=== PATIENT | male | born 1945 | race Caucasian/White ===

== ENCOUNTER 2018-10-25 17:30 | Inpatient (IN) ==
--- OUTSIDE RECORDS SUMMARY | 2018-10-25 17:33 | External Medical Summary | Continuity of Care Document ---
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) (Z86.008) History of basal cell carcinoma (V10.83) (Z85.828) Actinic keratosis (702.0) (L57.0) Neoplasm of uncertain behavior of skin (238.2) (D48.5) Dermatitis (692.9) (L30.9) Dermatophytosis, body (110.5) (B35.4) 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 Matt Knox Start: 21-Aug-2014 Quantity: 100 Refills: 2 Lindsey CAPS Matt Refills: 0 Flonase SUSP Matt Refills: 0 Zocor TABS Matt Refills: 0 Triamcinolone Acetonide 0.1 % External O intment; APPLY SPARINGLY TO AFFECTED AREA(S) TWICE DAILY Matt Knox Start: 29-May-2014 Quantity: 1 80 GM Tube Refills: 2 Econazole Nitrate 1 % External Cream; AP PLY SPARINGLY TO THE AFFECTED AREA(S) TWICE DAILY. Matt Knox Start: 07-Feb-2014 Quantity: 1 30 GM Tube Refills: 3 Compound Medication; HYDROCORTISONE 1% C REAM : CLOTRIMAZOLE 1 % CREAM 1:1 MIXTURE: APPLY TO AFFECTED AREAS TWICE DAILY SHANTHI Reyes Start: 29-Jan-2015 Quantity: 1 Refills: 1 Fluorouracil 5 % External Cream; APPLY A THIN LAYER TO AFFECTED AREA(S) TWICE DAILY. Matt Knox Start: 21-Jun-2015 Quantity: 30 Refills: 1 Mometasone Furoate 0.1 % External Ointme nt; APPLY SPARINGLY TO AFFECTED AREA(S) ONCE DAILY Matt Knox Start: 02-Jul-2015 Quantity: 1 15 GM Tube Refills: 3 Doxycycline Hyclate 100 MG Oral Capsule; TAKE 1 CAPSULE ANUPAM BAR M.D. Start: 20-Jan-2014 Refills: 0 Procedures History of Renal Lithotripsy Status: Com pleted Immunizations Influenza On: Jan-2012 Family History Father Family history of Diabetes Mellitus (V18.0) Status: Active Unknown Family Member Family history of Coronary Artery Disease Status: Active Comments: Family History (V17.49) Social History - Smoking Status Never smoker Plan of Treatment Planned Observations Planned Goals not documented Results No Known Results Results not documented Encounters Appointment; Gildardo Knox M.D. 07-Apr-2017 16:00 Encounter Diagnosis: Problem not documented
[2018-10-25] MEDS ORDERED: SODIUM CHLORIDE 0.9% 1000ML 1,000 ML IV ONE (18:06)
--- NOTE | 2018-10-25 18:48 | XRay Report ---
XR chest 1V portable CLINICAL HISTORY: weakness COMPARISON STUDY: No previous studies for comparison. FINDINGS: Lung volumes are diminished. There is moderate enlargement of the cardiac silhouette with p ulmonary vascular congestion. There is no consolidation to suggest pneumonia. There is no evidence fo r overt pulmonary edema. IMPRESSION: 1. Low lung volumes. 2. Moderate enlargement of the cardiac silhouette with pulmonary vascular congestion. Electronically signed by: Jamarcus Calvo M.D. 10/25/2018 6:47 PM
[2018-10-25 19:21] LABS: Basophils # (auto) 0.01 K/uL (0-0.2); Basophils % (auto) 0.1 %; Eosinophils # (auto) 0.13 K/uL (0-0.5); Eosinophils % (auto) 1.3 %; Hematocrit (blood only) 45.9 % (42-52); Hemoglobin 16.1 g/dL (14.0-18.0); Immature Granulocytes # (auto) 0.03 K/uL (0.00-0.02); Immature Granulocytes % (auto) 0.3 %; Mean Corpuscular Hgb Conc 35.1 g/dL (32-36); Mean Corpuscular Volume 91.4 fL (80-100); Mean Platelet Volume 10.4 fL (7.4-10.4); Monocytes # (auto) 1.08 K/uL (0.11-0.59); Monocytes % (auto) 10.8 %; Neutrophils # (auto) 7.25 K/uL (1.4-6.5); Neutrophils % (auto) 72.5 %; Platelet Count 217 K/uL (130-400); RDW Coefficient of Variation 13.1 % (11.5-14.5); RDW Standard Deviation 43.2 fL (36.4-46.3); Red Blood Count 5.02 M/uL (4.7-6.1)
[2018-10-25 19:33] LABS: Partial Thromboplastin Ratio 0.9; Partial Thromboplastin Time 23.9 Seconds (21.0-31.0); Prothrombin Time 10.3 Seconds (9.0-12.0)
[2018-10-25 19:46] LABS: Alanine Aminotransferase 30 U/L (12-78); Albumin Level 3.5 gm/dl (3.4-5.0); Aspartate Aminotransferase 20 U/L (15-37); BUN Creatinine Ratio 20.7 (10-20); Blood Urea Nitrogen 21 mg/dl (7-18); Carbon Dioxide 26 mmol/L (21-32); Chloride 108 mmol/L (98-107); Creatinine Clr Calc Pharmacy 77.1 ml/min; Est GFR (African American) 83.5; Est GFR (Non-African American) 72.1; Glucose 87 mg/dl (70-99); Magnesium 2.4 mg/dl (1.8-2.4); Potassium 4.5 mmol/L (3.5-5.1); Sodium 141 mmol/L (136-145)
[2018-10-25 19:58] LABS: Albumin Globulin Ratio 0.8 (0.9-2); Alkaline Phosphatase 74 U/L (45-117); Bilirubin,Total 0.3 mg/dl (0.2-1); Globulin 4.3 gm/dl (2.5-4.0); Total Protein 7.8 gm/dl (6.4-8.2); Troponin I < 0.015 ng/ml (0-0.045)
[2018-10-25] MEDS ORDERED: OPTIRAY 320 125ml IV PRN (20:53)
[2018-10-25 21:12] LABS: Appearance Urine Clear (Clear); Bilirubin Urine Negative (Negative); Blood Urine Negative (Negative); Color Urine Yellow; Glucose Urine UA Negative (Negative); Ketones Urine Negative (Negative); Leukocyte Esterase Urine Negative (Negative); Nitrite Urine Negative (Negative); Protein Urine Negative (Negative); Urobilinogen Urine Negative (Negative); pH Urine 5.5 (4.5-7.5)
--- NOTE | 2018-10-25 21:18 | CT Scan Report ---
CT OF THE HEAD WITHOUT CONTRAST CLINICAL HISTORY: Aphasia. COMPARISON STUDY: No previous studies for comparison. TECHNIQUE: Helical axial images of the head were obtained without IV contrast. Automated exposure con trol was utilized for the study. A dose lowering technique was utilized adhering to the principles o f ALARA. FINDINGS: No acute intracranial hemorrhage, midline shift or mass effect is present. Ventricular syst em is normal. Basilar cisterns are patent. There are no extra-axial collections. There is mild hypode nsity with loss of mccall-white differentiation within a small portion of the right frontal lobe. A few periventricular white matter hypodensities within the right frontal lobe probably reflect old infarc ts. IMPRESSION: 1. No acute intracranial hemorrhage or mass effect. 2. Hypodensity with loss of mccall-white differentiation within a small portion of the right frontal lo be which favors an acute to subacute infarct. No mass effect. Electronically signed by: Jamarcus Calvo M.D. 10/25/2018 9:16 PM
--- NOTE | 2018-10-25 21:26 | CT Scan Report ---
CT ANGIOGRAPHY OF THE NECK WITH CONTRAST CLINICAL HISTORY: aphasia COMPARISON STUDY: No previous studies for comparison. Technique: CT angiography of the carotid and vertebral arteries was obtained using Habbo 320 IV and 3D reconstruction on an independent workstation. NASCET criteria was utilized. Automated exposure c ontrol was utilized for the study. A dose lowering technique was utilized adhering to the principles of ALARA. CT DOSE: 1222.30 mGy.cm Findings: There is extensive ulcerated atherosclerotic plaque within the proximal right internal byrd tid artery. The vessel measures 1.4 mm in caliber at the level of stenosis. The vessel measures 4.6 m m distally. There is moderate plaque within the proximal left internal carotid artery without signifi cant stenosis. The right vertebral artery is dominant and patent. There is no dissection within the m ajor vessels of the neck. Lung apices are clear. There is no cervical lymphadenopathy. IMPRESSION: Extensive ulcerated atherosclerotic plaque within the proximal right internal carotid artery with 70% stenosis. Electronically signed by: Jamarcus Calvo M.D. 10/25/2018 9:24 PM
--- NOTE | 2018-10-25 21:30 | CT Scan Report ---
CTA ANGIOGRAPHY OF THE HEAD CLINICAL HISTORY: aphasia COMPARISON STUDY: No previous studies for comparison. TECHNIQUE: Helical axial images of the head were obtained following uneventful intravenous administr ation of 115 cc of Optiray 320. Automated exposure control was utilized for the study. A dose lower ing technique was utilized adhering to the principles of ALARA. FINDINGS: Please note that the CT of the head will be reported separately. The bilateral M1, M2, A1 a nd A2 segments are patent. There is moderate plaque within the bilateral cavernous carotids without s ignificant stenosis. No abrupt vessel cut off is identified. There is no intracranial aneurysm or dis section. Posterior circulation appears intact. IMPRESSION: No intracranial aneurysm or abrupt vessel cut off. Electronically signed by: Jamarcus Calvo M.D. 10/25/2018 9:29 PM
--- NOTE | 2018-10-25 21:36 | Emergency Department Note ---
Entered by Payton Vázquez acting as a scribe for Duncan Frias M.D. History of Present Illness General Chief complaint: Stroke/CVA Symptoms Stated complaint: WEAKNESS, SLURRED SPEECH Source: patient History of Present Illness Provider complaint: slurred speech Onset (ago): week(s) 2 Pain Consistency: + other (worsening) Quality: + other (episodes) Associated symptoms: + shortness of breath and + other (+dizziness, - tinging/numbness in feet, ); no headaches Treatments prior to arrival: aspirin The patient is a 73 year old male who presents to the Emergency Room with complaints of intermittent episodes of slurred speech. The patient states he has had intermittent slurred speech episodes for the past 2 weeks. The patient reports that his episodes have worsened lately. He states that it was hard to get his words out today and that he had shortness of breath when he was bending over. The patients family states that they have noticed that he has been fatigued lately and have been mumbling. The patient reports that he has been feeling more emotional lately and dizzy. He states that the episodes last 30 minutes. He denies any headache, tingling numbness in his feet, or any other pain. He denies any past similar episodes. The patient denies any recent fall, abnormal sleep habits, history of strokes, cardiac history, or diabetes mellitus. The patient reports that he takes medication for his high cholesterol and allergies. He states he took 2 aspirin prior to arrival Home Medications Home Medications Medication Instructions Recorded Confirmed Type fexofenadine [Lindsey Allergy] 180 mg PO DAILY 10/25/18 10/25/18 History losartan 25 mg PO DAILY 10/25/18 10/25/18 History mometasone 1 applic TOPICAL DAILY PRN 10/25/18 10/25/18 History simvastatin 40 mg PO PM 10/25/18 10/25/18 History tacrolimus 1 applic TOPICAL BID 10/25/18 10/25/18 History triamcinolone acetonide [Nasacort] 2 spray INTRANASAL DAILY 10/25/18 10/25/18 History Allergies Allergy/AdvReac Type Severity Reaction Status Date / Time No Known Allergies Allergy Unverified 10/25/18 20:52 Past Med/Surg History Medical History High cholesterol (Chronic) Social History Preferred Language: Urdu Feels Safe at Home: Yes Smoking Status: Former smoker Review of Systems See HPI for pertinent positives & negatives. and A total of 10 systems reviewed and were otherwise negative Physical Exam Vital Signs Vital Signs - 24 hr 10/25/18 17:30 10/25/18 17:35 10/25/18 17:48 Temperature 36.4 C L Temperature Source Oral Sepsis Recent Fever Within 48 Hours No Sepsis New/Unexplained Change in Mental Status No Sepsis Action Taken by Nursing No Action Required Pulse Rate 90 93 H Pulse Rate [Apical] Pulse Rate from SpO2 Sensor Pulse Rhythm Regular Pulse Rhythm [Apical] Pulse Strength Normal Pulse Strength [Apical] Respiratory Rate 20 22 Respiratory Effort / Characteristics Non-Labored Spontaneous Respiratory Depth Normal Respiratory Pattern Regular Blood Pressure 147/80 H 158/117 H Blood Pressure [Right Arm] Blood Pressure Mean 102 130 Blood Pressure Mean [Right Arm] Blood Pressure Position Sitting Blood Pressure Position [Right Arm] Pulse Oximetry 98 95 Oxygen Delivery Method Room Air Room Air 10/25/18 17:53 10/25/18 18:00 10/25/18 18:30 Temperature Temperature Source Sepsis Recent Fever Within 48 Hours Sepsis New/Unexplained Change in Mental Status Sepsis Action Taken by Nursing Pulse Rate 88 85 80 Pulse Rate [Apical] Pulse Rate from SpO2 Sensor Pulse Rhythm Pulse Rhythm [Apical] Pulse Strength Pulse Strength [Apical] Respiratory Rate 23 29 H 23 Respiratory Effort / Characteristics Respiratory Depth Respiratory Pattern Blood Pressure Blood Pressure [Right Arm] Blood Pressure Mean Blood Pressure Mean [Right Arm] Blood Pressure Position Blood Pressure Position [Right Arm] Pulse Oximetry Oxygen Delivery Method 10/25/18 18:57 10/25/18 19:00 10/25/18 19:30 Temperature Temperature Source Sepsis Recent Fever Within 48 Hours Sepsis New/Unexplained Change in Mental Status Sepsis Action Taken by Nursing Pulse Rate 85 81 74 Pulse Rate [Apical] Pulse Rate from SpO2 Sensor Pulse Rhythm Pulse Rhythm [Apical] Pulse Strength Pulse Strength [Apical] Respiratory Rate 26 H 31 H 24 Respiratory Effort / Characteristics Respiratory Depth Respiratory Pattern Blood Pressure 154/106 H Blood Pressure [Right Arm] Blood Pressure Mean 122 Blood Pressure Mean [Right Arm] Blood Pressure Position Blood Pressure Position [Right Arm] Pulse Oximetry Oxygen Delivery Method 10/25/18 20:00 10/25/18 20:30 10/25/18 20:59 Temperature Temperature Source Sepsis Recent Fever Within 48 Hours Sepsis New/Unexplained Change in Mental Status Sepsis Action Taken by Nursing Pulse Rate 79 80 86 Pulse Rate [Apical] 90 Pulse Rate from SpO2 Sensor 79 Pulse Rhythm Pulse Rhythm [Apical] Regular Pulse Strength Pulse Strength [Apical] Normal Respiratory Rate 23 24 28 H Respiratory Effort / Characteristics Non-Labored Respiratory Depth Normal Respiratory Pattern Regular Blood Pressure 185/125 H Blood Pressure [Right Arm] 185/125 H Blood Pressure Mean 145 Blood Pressure Mean [Right Arm] 145 Blood Pressure Position Blood Pressure Position [Right Arm] Lying Pulse Oximetry 91 Oxygen Delivery Method Room Air 10/25/18 21:00 10/25/18 21:01 10/25/18 21:30 Temperature Temperature Source Sepsis Recent Fever Within 48 Hours Sepsis New/Unexplained Change in Mental Status Sepsis Action Taken by Nursing Pulse Rate 83 81 75 Pulse Rate [Apical] Pulse Rate from SpO2 Sensor 85 84 81 Pulse Rhythm Pulse Rhythm [Apical] Pulse Strength Pulse Strength [Apical] Respiratory Rate 30 H 30 H 21 Respiratory Effort / Characteristics Respiratory Depth Respiratory Pattern Blood Pressure 181/101 H Blood Pressure [Right Arm] Blood Pressure Mean 127 Blood Pressure Mean [Right Arm] Blood Pressure Position Blood Pressure Position [Right Arm] Pulse Oximetry 97 96 97 Oxygen Delivery Method 10/25/18 22:00 10/25/18 22:01 10/25/18 22:30 Temperature Temperature Source Sepsis Recent Fever Within 48 Hours Sepsis New/Unexplained Change in Mental Status Sepsis Action Taken by Nursing Pulse Rate 83 75 78 Pulse Rate [Apical] Pulse Rate from SpO2 Sensor 75 77 76 Pulse Rhythm Pulse Rhythm [Apical] Pulse Strength Pulse Strength [Apical] Respiratory Rate 29 H 24 26 H Respiratory Effort / Characteristics Respiratory Depth Respiratory Pattern Blood Pressure 161/95 H Blood Pressure [Right Arm] Blood Pressure Mean 117 Blood Pressure Mean [Right Arm] Blood Pressure Position Blood Pressure Position [Right Arm] Pulse Oximetry 94 94 95 Oxygen Delivery Method 10/25/18 23:00 10/25/18 23:01 10/25/18 23:30 Temperature Temperature Source Sepsis Recent Fever Within 48 Hours Sepsis New/Unexplained Change in Mental Status Sepsis Action Taken by Nursing Pulse Rate 80 78 76 Pulse Rate [Apical] Pulse Rate from SpO2 Sensor 74 80 73 Pulse Rhythm Pulse Rhythm [Apical] Pulse Strength Pulse Strength [Apical] Respiratory Rate 30 H 25 H 25 H Respiratory Effort / Characteristics Respiratory Depth Respiratory Pattern Blood Pressure 161/99 H Blood Pressure [Right Arm] Blood Pressure Mean 119 Blood Pressure Mean [Right Arm] Blood Pressure Position Blood Pressure Position [Right Arm] Pulse Oximetry 96 97 96 Oxygen Delivery Method GENERAL: Awake, alert, in no distress HENT: Normocephalic, atraumatic. Oropharynx unremarkable. EYES: Moderate conjunctiva ejection. PERRL. ocular motion intact. Sclera non- icteric. NECK: Supple. No nuchal rigidity. RESPIRATORY: Clear to auscultation. No wheezes. Normal respiratory effort. CARDIAC: Normal rate. Normal rhythm. Extremities warm and well perfused. GI: Soft, non-distended. No tenderness to palpation. No rebound or guarding. RECTAL: Deferred. MUSCULOSKELETAL: Atraumatic. Chest examination reveals no tenderness. LOWER EXTREMITIES: Calves are equal size bilaterally and non-tender. No edema NEURO: No sensory or motor deficits noted. No facial droop. No slurred speech or aphasia at this time. No pronator drift. SKIN: Warm and dry. No rash or jaundice noted. Course 1754: The patient was evaluated in room C5, and a complete history and physical examination were performed. 2137: I reviewed the patient's case with Dr. Victor Hugo Cardenas. He will evaluate the patient for further management. Consultations Time: 21:38 Consultation #2: Dr. Victor Hugo Cardenas Administered Medications Ioversol (Optiray 320 125ml) 115 ml IV ONCE PRN PRN Reason: Interaction Checking Stop: 10/29/18 20:52 Last Admin: 10/25/18 20:53 Dose: 115 ml Documented by: [id number] Discontinued Medications Sodium Chloride (Nss 1000ml) 1,000 mls @ 999 mls/hr IV .Q1H1M ONE Stop: 10/25/18 19:06 Last Infusion: 10/25/18 20:34 Dose: 0 mls/hr Documented by: [id number] Admin: 10/25/18 19:33 Dose: 999 mls/hr Documented by: [id number] Medical Decision Making Differential Diagnosis Differential diagnosis: Etiologies such as metabolic, infection, hypo/hyperglycemia, electrolyte abnormalities, cardiac sources, intracerebral event, toxicologic, neurologic, as well as others were entertained. Medical Records Attestation: I reviewed the patient's medical records. Home Medications Current Medication List: was personally reviewed by me Laboratory Data Attestation: I reviewed the patient's lab results. Result diagrams: 10/25/18 18:59 10/25/18 18:59 Lab Results 10/25/18 10/25/18 10/25/18 Range/Units 18:59 18:59 18:59 WBC 10.00 (4.8-10.8) K/uL RBC 5.02 (4.7-6.1) M/uL Hgb 16.1 (14.0-18.0) g/dL Hct 45.9 (42-52) % MCV 91.4 (80-100) fL MCH 32.1 (25-34) pg MCHC 35.1 (32-36) g/dL RDW Std Deviation 43.2 (36.4-46.3) fL RDW Coeff of [place] 13.1 (11.5-14.5) % Plt Count 217 (130-400) K/uL MPV 10.4 (7.4-10.4) fL Immature Gran % (Auto) 0.3 % Neut % (Auto) 72.5 % Lymph % (Auto) 15.0 % [place] % (Auto) 10.8 % Eos % (Auto) 1.3 % Baso % (Auto) 0.1 % Immature Gran # (Auto) 0.03 H (0.00-0.02) K/uL Neut # (Auto) 7.25 H (1.4-6.5) K/uL Lymph # (Auto) 1.50 (1.2-3.4) K/uL [place] # (Auto) 1.08 H (0.11-0.59) K/uL Eos # (Auto) 0.13 (0-0.5) K/uL Baso # (Auto) 0.01 (0-0.2) K/uL PT 10.3 (9.0-12.0) Seconds INR 1.0 (0.9-1.1) APTT 23.9 (21.0-31.0) Seconds PTT Ratio 0.9 Sodium 141 (136-145) mmol/L Potassium 4.5 (3.5-5.1) mmol/L Chloride 108 H (98-107) mmol/L Carbon Dioxide 26 (21-32) mmol/L Anion Gap 7.0 (3-11) BUN 21 H (7-18) mg/dl Creatinine 1.02 (0.6-1.4) mg/dl Est Cr Clr Drug Dosing 77.1 ml/min Est GFR ( Amer) 83.5 Est GFR (Non-Af Amer) 72.1 BUN/Creatinine Ratio 20.7 H (10-20) Glucose 87 (70-99) mg/dl POC Glucose (70-99) Calcium 9.0 (8.5-10.1) mg/dl Magnesium 2.4 (1.8-2.4) mg/dl Total Bilirubin 0.3 (0.2-1) mg/dl AST 20 (15-37) U/L ALT 30 (12-78) U/L Alkaline Phosphatase 74 (45-117) U/L Troponin I < 0.015 (0-0.045) ng/ml Total Protein 7.8 (6.4-8.2) gm/dl Albumin 3.5 (3.4-5.0) gm/dl Globulin 4.3 H (2.5-4.0) gm/dl Albumin/Globulin Ratio 0.8 L (0.9-2) TSH 1.060 (0.300-4.500) uIu/ml Specimen Hemolysis Urine Color Urine Appearance (Clear) Urine pH (4.5-7.5) Ur Specific [place] (1.000-1.030) Urine Protein (Negative) Urine Glucose (UA) (Negative) Urine Ketones (Negative) Urine Blood (Negative) Urine Nitrite (Negative) Urine Bilirubin (Negative) Urine Urobilinogen (Negative) Ur Leukocyte Esterase (Negative) 10/25/18 10/25/18 Range/Units 19:02 Unknown WBC (4.8-10.8) K/uL RBC (4.7-6.1) M/uL Hgb (14.0-18.0) g/dL Hct (42-52) % MCV (80-100) fL MCH (25-34) pg MCHC (32-36) g/dL RDW Std Deviation (36.4-46.3) fL RDW Coeff of [place] (11.5-14.5) % Plt Count (130-400) K/uL MPV (7.4-10.4) fL Immature Gran % (Auto) % Neut % (Auto) % Lymph % (Auto) % [place] % (Auto) % Eos % (Auto) % Baso % (Auto) % Immature Gran # (Auto) (0.00-0.02) K/uL Neut # (Auto) (1.4-6.5) K/uL Lymph # (Auto) (1.2-3.4) K/uL [place] # (Auto) (0.11-0.59) K/uL Eos # (Auto) (0-0.5) K/uL Baso # (Auto) (0-0.2) K/uL PT (9.0-12.0) Seconds INR (0.9-1.1) APTT (21.0-31.0) Seconds PTT Ratio Sodium (136-145) mmol/L Potassium (3.5-5.1) mmol/L Chloride (98-107) mmol/L Carbon Dioxide (21-32) mmol/L Anion Gap (3-11) BUN (7-18) mg/dl Creatinine (0.6-1.4) mg/dl Est Cr Clr Drug Dosing ml/min Est GFR ( Amer) Est GFR (Non-Af Amer) BUN/Creatinine Ratio (10-20) Glucose (70-99) mg/dl POC Glucose 91 (70-99) Calcium (8.5-10.1) mg/dl Magnesium (1.8-2.4) mg/dl Total Bilirubin (0.2-1) mg/dl AST (15-37) U/L ALT (12-78) U/L Alkaline Phosphatase (45-117) U/L Troponin I (0-0.045) ng/ml Total Protein (6.4-8.2) gm/dl Albumin (3.4-5.0) gm/dl Globulin (2.5-4.0) gm/dl Albumin/Globulin Ratio (0.9-2) TSH (0.300-4.500) uIu/ml Specimen Hemolysis Urine Color Yellow Urine Appearance Clear (Clear) Urine pH 5.5 (4.5-7.5) Ur Specific [place] 1.030 (1.000-1.030) Urine Protein Negative (Negative) Urine Glucose (UA) Negative (Negative) Urine Ketones Negative (Negative) Urine Blood Negative (Negative) Urine Nitrite Negative (Negative) Urine Bilirubin Negative (Negative) Urine Urobilinogen Negative (Negative) Ur Leukocyte Esterase Negative (Negative) Imaging Data Radiologist's Impression: Radiology results as stated below per my review and the radiologist's interpretation: CT OF THE HEAD WITHOUT CONTRAST CLINICAL HISTORY: Aphasia. COMPARISON STUDY: No previous studies for comparison. TECHNIQUE: Helical axial images of the head were obtained without IV contrast. Automated exposure control was utilized for the study. A dose lowering technique was utilized adhering to the principles of ALARA. FINDINGS: No acute intracranial hemorrhage, midline shift or mass effect is present. Ventricular system is normal. Basilar cisterns are patent. There are no extra-axial collections. There is mild hypodensity with loss of mccall-white differentiation within a small portion of the right frontal lobe. A few periventricular white matter hypodensities within the right frontal lobe probably reflect old infarcts. IMPRESSION: 1. No acute intracranial hemorrhage or mass effect. 2. Hypodensity with loss of mccall-white differentiation within a small portion of the right frontal lobe which favors an acute to subacute infarct. No mass effect. Electronically signed by: Jamarcus Calvo M.D. 10/25/2018 9:16 PM XR chest 1V portable CLINICAL HISTORY: weakness COMPARISON STUDY: No previous studies for comparison. FINDINGS: Lung volumes are diminished. There is moderate enlargement of the cardiac silhouette with pulmonary vascular congestion. There is no consolidation to suggest pneumonia. There is no evidence for overt pulmonary edema. IMPRESSION: 1. Low lung volumes. 2. Moderate enlargement of the cardiac silhouette with pulmonary vascular congestion. Electronically signed by: Jamarcus Calvo M.D. 10/25/2018 6:47 PM CTA ANGIOGRAPHY OF THE HEAD CLINICAL HISTORY: aphasia COMPARISON STUDY: No previous studies for comparison. TECHNIQUE: Helical axial images of the head were obtained following uneventful intravenous administration of 115 cc of Optiray 320. Automated exposure control was utilized for the study. A dose lowering technique was utilized adhering to the principles of ALARA. FINDINGS: Please note that the CT of the head will be reported separately. The bilateral M1, M2, A1 and A2 segments are patent. There is moderate plaque within the bilateral cavernous carotids without significant stenosis. No abrupt vessel cut off is identified. There is no intracranial aneurysm or dissection. Posterior circulation appears intact. IMPRESSION: No intracranial aneurysm or abrupt vessel cut off. Electronically signed by: Jamarcus Calvo M.D. 10/25/2018 9:[address] ANGIOGRAPHY OF THE NECK WITH CONTRAST CLINICAL HISTORY: aphasia COMPARISON STUDY: No previous studies for comparison. Technique: CT angiography of the carotid and vertebral arteries was obtained using [employer] 320 IV and 3D reconstruction on an independent workstation. NASCET criteria was utilized. Automated exposure control was utilized for the study. A dose lowering technique was utilized adhering to the principles of ALARA. CT DOSE: 1222.30 mGy.cm Findings: There is extensive ulcerated atherosclerotic plaque within the proximal right internal carotid artery. The vessel measures 1.4 mm in caliber at the level of stenosis. The vessel measures 4.6 mm distally. There is moderate plaque within the proximal left internal carotid artery without significant stenosis. The right vertebral artery is dominant and patent. There is no dissection within the major vessels of the neck. Lung apices are clear. There is no cervical lymphadenopathy. IMPRESSION: Extensive ulcerated atherosclerotic plaque within the proximal right internal carotid artery with 70% stenosis. Electronically signed by: Jamarcus Calvo M.D. 10/25/2018 9:24 PM ECG Data Attestation: I personally reviewed and interpreted this ECG as follows: Indication: weakness Rate (beats per minute): 83 Rhythm: sinus with SA Findings: + other (normal axis) and + PVC; no ST depression and no ST elevation Blood Pressure Blood Pressure Findings: Elevated blood pressure Blood Pressure Disposition: further management by hospitalist LEANNA Narrative Patient is a 73-year-old for episodes of slurred speech. Intermittent for the week. States he has some numbness and tingling bilateral hands but does also have a history of carpal tunnel. Endorsing some generalized weakness but not really focal. No facial droop reported or trauma. Afebrile here. Last known well is sometime yesterday no tobacco use history reported. Is on statin for hyperlipidemia and a blood pressure medicine. Took out to aspirin prior to arrival. Is been intermittent again but today had a least 30-minute episode of aphasia with some mumbling unable to get words out. No headache visual changes or extremity weakness. Was able to drive after this. Says he did have a beer after this when symptoms improved but does not appear clinically intoxicated and is now back to normal. States his numbness is bilateral hands with bad carpal tunnel but again no other significant neurological symptoms. No pronator drift. Bad allergies with some conjunctival injection no significant eye changes. States he is he has had a little bit of dizziness at times. States he is a borderline diabetic. Again no indication for TPA given his resolution of symptoms. Concern for possible TIA. Given some IV fluid as he states he does not drink much water. Basic labs are obtained as well as EKG and chest x-ray. CT the head and neck were completed look for any intracranial abnormality or vascular issue. Chest x-ray does show some slight pulmonary vascular congestion although no history of CHF and no oxygen requirement. Labs were grossly unremarkable. Head CT showed concerning signs for possible acute to subacute frontal lobe infarct as well as extensive ulcerative plaques of the right internal carotid artery without abrupt intracranial artery cut off. Discussed with patient family given these findings believe admission for further evaluation of stroke is indicated. Patient again already took aspirin prior to arrival. [facility] hospitalist contacted. Impression & Plan Cerebrovascular accident Discharge Plan Visit Data Chief Complaint: Stroke/CVA Symptoms Stated Complaint: WEAKNESS, SLURRED SPEECH ED Provider: Duncan Frias Discharge Problem: Cerebrovascular accident Forms Stand Alone Forms: My [facility] Prescriptions Prescriptions: No Action simvastatin 40 mg Tablet 40 mg PO PM RF: 0 losartan 25 mg tablet 25 mg PO DAILY RF: 0 fexofenadine [Lindsey Allergy] 180 mg Tablet 180 mg PO DAILY RF: 0 tacrolimus 0.1 % ointment 1 applic topical BID RF: 0 triamcinolone acetonide [Nasacort] 55 mcg Aerosol,[place] 2 spray INTRANASAL DAILY RF: 0 mometasone 0.1 % cream 1 applic topical DAILY PRN (Reason: Itching) RF: 0 Discharge Problem: Cerebrovascular accident Qualifiers: CVA mechanism: unspecified Qualified Code(s): I63.9 - Cerebral infarction, unspecified The scribe's documentation has been prepared under my direction and personally reviewed by me in its entirety. I confirm that the note above accurately reflects all work, treatment, procedures, and medical decision making performed by me.
[2018-10-26] MEDS ORDERED: PHARMACIST DISCHARGE MED REC CONSULT PRN (00:50)
[2018-10-26] MEDS ORDERED: ONDANSETRON INJ 2 MG/ML 2 ML VIAL IV PRN (00:50)
[2018-10-26] MEDS ORDERED: NITROGLYCERIN SL 0.4 MG/TAB TAB SL PRN (00:50)
[2018-10-26] MEDS ORDERED: ACETAMINOPHEN 325 MG TAB PO PRN (00:50)
[2018-10-26] MEDS ORDERED: MOMETASONE FUROATE 0.1% CR 15 GM TUBE EXT PRN (00:50)
[2018-10-26] MEDS ORDERED: GADOBUTROL 65ML VIAL IV PRN (01:22)
[2018-10-26] MEDS: SODIUM CHLORIDE 0.9% 1000ML 1,000 ML IV SCH ×2 (02:05→13:01)
--- NOTE | 2018-10-26 02:07 | History and Physical Report ---
DATE OF ADMISSION: 10/25/2018 CHIEF COMPLAINT: transient aphasia. 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 The patient says first symptoms started a couple of days ago when he had slurred speech for about half hour but then got resolved. It happened again yesterday and today at noon time. It lasted long. He could not speak and had slurred speech. He lives alone. Daughter lives close by. When she came in at around 4:30pm, he still had slurred speech. By the time they came to ER the symptoms resolved. Currently, his speech is back to normal but CAT scan is showing right frontal lobe acute subacute infarct. The patient denies any headache. Vision is not that great. He has atrophic dermatitis of the eyelids, uses cream. Hard of hearing. Has some runny nose, no sore throat, no difficulty swallowing. No chest pain, no shortness of breath. Sleeps okay. No cough, no fever, no chills, no nausea, no abdominal pain. Normal bowel and bladder movements. No blood in the stools, no black stools, no hematuria, no burning micturition. No swelling of the legs, no weakness in the hands or legs. Currently, resting comfortable and hemodynamically stable. ALLERGIES: YOSI INHIBITORS. PAST MEDICAL HISTORY: As mentioned above. PAST SURGICAL HISTORY: Colonoscopy, cystoscopy and lithotripsy. MEDICATIONS: The patient is on tacrolimus ointment apply twice daily on the eyelids, losartan 25 mg p.o. daily, simvastatin 40 mg p.o. at bedtime, triamcinolone nasal spray daily and Lindsey 180 mg p.o. daily. FAMILY HISTORY: Significant for father had diabetes, thoracic aneurysm. Uncle has eczema. Brother has CABG at age 57. SOCIAL HISTORY: , lives alone, quit smoking in 1988, smoked 2 packs a day for 15 years. Alcohol occasional. No drug use. REVIEW OF SYMPTOMS: As per HPI. Rest of review of symptoms negative. PHYSICAL EXAMINATION: GENERAL: The patient is obese, not in acute distress. VITAL SIGNS: Temperature 36.4, pulse 90, respiratory rate 20, blood pressure 185/125 but currently in the 160s, oxygen 95% on room air. HEENT: No pallor, no icterus. Pupils equal, round, and reactive to light. NECK: No JVD, no neck masses, no carotid bruit. CARDIOVASCULAR: S1, S2 heard, regular rate and rhythm, no murmur, no gallop. RESPIRATORY SYSTEM: Normal AP diameter. No use of accessory muscle use. No wheezing, no crackles. ABDOMEN: Soft, bowel sounds present. Nontender. No distention. CENTRAL NERVOUS SYSTEM: Alert and oriented x3. Recent and remote memory intact. Power 5/5 in all extremities. No pronator drift. Coordination of movements normal. [id number] test normal. Transition is intact. EXTREMITIES: No edema, no erythema. LABS: WBC 10, hemoglobin 16.1, hematocrit 45.9, platelets 217. PT 10.3, INR 1, APTT 23.9. Sodium 141, potassium 4.5, chloride 108, bicarbonate 26, BUN 21, creatinine 1.02, serum glucose 87, calcium 9, magnesium 2.4, total bilirubin 0.3, AST 20, ALT 30, alkaline phosphatase 74, troponin I less than 0.015. TSH 1.06. Urinalysis negative. CT of the neck, extensive ulcer to atherosclerotic plaque within the proximal right internal carotid artery with 70% stenosis. CT of the head, no intracranial hemorrhage or abrupt visual cut off. Chest x-ray moderate enlargement of the cardiac silhouette. CT of the head, no acute intracranial hemorrhage or mass effect, hypodensity with loss of mccall white differentiation within a small portion of the right frontal lobe which favors an acute to subacute infarct, no mass effect. EKG: Sinus rhythm with marked sinus arrhythmia with occasional PVCs, at a rate of 83, no previous ECG available. No acute ST changes seen. ASSESSMENT AND PLAN: This is a 73-year-old male who presents with slurred speech and found to have acute subacute cerebrovascular accident. 1. Acute/subacute small infarct on right frontal lobe, presents with ongoing on and off last few days of slurred speech. Currently speech is back to normal. We will do full stroke workup with MRI, of the head, carotid Doppler, echocardiogram. PT and OT and speech. Neurology consult in a.m. and neuro checks per protocol. Closely monitor in the tele floor. Gentle fluids. Patient took couple of aspirin before he came to Er. Will start on baby aspirin. 2. Hypertension. The patient is BP somewhat higher. We will allow permissive hypertension and hold losartan for now.. 3. Hyperlipidemia. We will change simvastatin to Lipitor. Follow lipid profile. 4. Right internal carotid stenosis 70%. Needs followup. 5. Deep venous thrombosis prophylaxis, sequential compression devices. DISPOSITION: Admit to tele floor. Expect to discharge home and follow with family doctor. Level 1 full code. Social Service to help with discharge planning. DELMY
[2018-10-26 06:17] LABS: Basophils # (auto) 0.01 K/uL (0-0.2); Basophils % (auto) 0.1 %; Eosinophils # (auto) 0.18 K/uL (0-0.5); Eosinophils % (auto) 1.9 %; Hematocrit (blood only) 43.7 % (42-52); Hemoglobin 14.9 g/dL (14.0-18.0); Immature Granulocytes # (auto) 0.02 K/uL (0.00-0.02); Immature Granulocytes % (auto) 0.2 %; Lymphocytes # (auto) 1.93 K/uL (1.2-3.4); Lymphocytes % (auto) 20.2 %; Mean Corpuscular Hgb Conc 34.1 g/dL (32-36); Mean Corpuscular Volume 91.4 fL (80-100); Mean Platelet Volume 10.3 fL (7.4-10.4); Monocytes # (auto) 0.98 K/uL (0.11-0.59); Monocytes % (auto) 10.3 %; Neutrophils # (auto) 6.43 K/uL (1.4-6.5); Neutrophils % (auto) 67.3 %; Platelet Count 180 K/uL (130-400); RDW Coefficient of Variation 12.8 % (11.5-14.5); RDW Standard Deviation 42.9 fL (36.4-46.3); Red Blood Count 4.78 M/uL (4.7-6.1); White Blood Count 9.55 K/uL (4.8-10.8)
[2018-10-26 06:40] LABS: Estimated Average Glucose 131 mg/dl; Hemoglobin A1C 6.2 % (4.5-5.6)
[2018-10-26 06:46] LABS: BUN Creatinine Ratio 17.3 (10-20); Calcium 8.4 mg/dl (8.5-10.1); Est GFR (African American) 100.5; Est GFR (Non-African American) 86.7
--- NOTE | 2018-10-26 07:11 | Neurology Consultation ---
Date of Consultation October 26, 2018 Assessment & Plan (1) Embolic stroke: A 73 year old male with history of HTN and HLD admitted with intermittent speech deficits which have now resolved. MRI brain confirms embolic appearing ischemic strokes in right MCA and right [employer] territories. CTA head and neck shows significant right carotid stenosis. TTE showed no cardiac source of embolism. NIHSS 0. Patient currently back to baseline. He was not on ASA at home prior to admission. - Recommend ASA 81 mg daily and Plavix 75 mg daily for 21-days, then Plavix 75 mg daily - Recommend increasing lipitor to 80 mg daily - SBP goal < 140 <DBP goal < 90 - Please check HA1c - Recommend cardiology consult for HITESH - Recommend vascular surgery for evaluation of CEA - May need cardiac event monitor on discharge (2) Carotid stenosis, right: (3) Hyperlipidemia: (4) HTN (hypertension): (5) Cerebrovascular accident: History of Present Illness Attending Physician: Sanjiv Ordoñez MD Allergies Allergy/AdvReac Type Severity Reaction Status Date / Time No Known Allergies Allergy Unverified 10/25/18 20:52 Home Medications Home Medications Medication Instructions Recorded Confirmed Type fexofenadine [Lindsey Allergy] 180 mg PO DAILY 10/25/18 10/25/18 History losartan 25 mg PO DAILY 10/25/18 10/25/18 History mometasone 1 applic TOPICAL DAILY PRN 10/25/18 10/25/18 History simvastatin 40 mg PO PM 10/25/18 10/25/18 History tacrolimus 1 applic TOPICAL BID 10/25/18 10/25/18 History triamcinolone acetonide [Nasacort] 2 spray INTRANASAL DAILY 10/25/18 10/25/18 History Patient History Medical History High cholesterol (Chronic) Social History Preferred Language: Uzbek Communication Ability: Effective Phlebotomist Associate Required: No Beliefs That Will Affect Care: None Current Living Situation: Alone Other Information That Helps Us Care for You: No Feels Safe at Home: Yes Safety Concerns: Feels Safe At This Time Smoking Status: Former smoker Do You Dip or Chew Tobacco: No Second Hand Exposure: No Tobacco Cessation Education Requested by Patient: No Hx Alcohol Use: Yes Alcohol type: beer Hx Substance Use: No Physical Exam Physical Exam: EXAM: Constitutional: appearance normally developed, obese mle Head and Face: normocephalic and atraumatic Eyes: normal lids, normal conjunctiva Neck: supple Respiratory: normal effort Cardiovascular: normal pulses Abdomen: non distended Skin: no rashes, lesions, or ulcers noted Psychiatric: normal judgement and insight, normal mood and normal affect NEUROLOGIC EXAMINATION: Appearance: no acute distress Orientation: awake, alert and oriented x 3 Mental Status: alert Memory: Ok Attention: normal Knowledge: appropriate Language: no aphasia Speech: no dysarthria Cranial Nerves: CN 2 - no visual defect on confrontation and pupils round, equal, reactive to light CN 3, 4, 6 - extra-ocular movements intact and no nystagmus CN 5 - facial sensation intact CN 7 - no facial asymmetry CN 8 - intact hearing CN 9, 10 - palate symmetric CN 11 - good shoulder shrug CN 12 - tongue midline Gait: deferred Coordination: no ataxia with finger to nose testing Sensory: intact and symmetric to light touch Muscle Tone: normal Muscle exam: 5/5 throughout Reflexes: 2+ at the knees, no clonus Results & Data Vital Signs (Past 12 Hours) Vital Signs Temp Pulse Pulse Resp BP BP Pulse Ox 10/26/18 04:05 36.4 C L 83 20 128/79 96 10/26/18 01:25 36.5 C 80 18 145/95 H 95 10/25/18 23:30 76 25 H 96 10/25/18 23:01 78 25 H 161/99 H 97 10/25/18 23:00 80 30 H 96 10/25/18 22:30 78 26 H 95 10/25/18 22:01 75 24 161/95 H 94 10/25/18 22:00 83 29 H 94 10/25/18 21:30 75 21 97 10/25/18 21:01 81 30 H 181/101 H 96 10/25/18 21:00 83 30 H 97 10/25/18 20:59 86 90 28 H 185/125 H 185/125 H 91 10/25/18 20:30 80 24 10/25/18 20:00 79 23 10/25/18 19:30 74 24 Laboratory Results HA1c 6.[address] head non contrast:1. No acute intracranial hemorrhage or mass effect. 2. Hypodensity with loss of mccall-white differentiation within a small portion of the right frontal lobe which favors an acute to subacute infarct. No mass effect. CTA head : No intracranial aneurysm or abrupt vessel cut off. CTA Neck: Extensive ulcerated atherosclerotic plaque within the proximal right internal carotid artery with 70% stenosis. MRI Brain w/o: Acute right MCA and [employer] embolic appearing strokes on [facility] imaging (1) Cerebrovascular accident CVA mechanism: unspecified Qualified Code(s): I63.9 - Cerebral infarction, unspecified
--- NOTE | 2018-10-26 07:13 | Magnetic Resonance Report ---
MR brain wo/w con HISTORY: 73 years-old Male cva acute strokelike symptoms COMPARISON: CT head, CTA head and neck 10/25/2018 TECHNIQUE: Multiplanar multisequence MRI of the brain was obtained both with and without the use of 1 0.8 mL Gadavist FINDINGS: Motion degraded exam. 1.8 x 1.0 cm area of restricted diffusion about the right occipital lobe distri bution, image 11 series 4 with 2.9 x 1.9 cm area of restricted diffusion about the right frontal lobe , image 18 series 4, both of these areas demonstrating mildly increased T2/FLAIR signal. Midline stru ctures including the corpus callosum, brainstem, optic chiasm, pituitary and pineal glands appear unr emarkable on the sagittal T1 series. No cerebellar tonsillar herniation. Degenerative changes noted a bout the imaged cervical spine. There is no acute intracranial hemorrhage, midline shift, abnormal ex tra-axial collections, hydrocephalus or intracranial mass. 1.2 x 0.7 cm lipoma about the falx cerebri near the apex. No abnormal intra-axial or extra-axial enhancement. Mild age-related involutional jerald nges. Minimal patchy white matter hypodensities are suggestive of chronic microvascular ischemic dise ase. Major flow voids at the level of the skull base appear patent. Prior bilateral cataract repair. Mild mucosal thickening of the paranasal sinuses. Mild leftward bowing and spurring of the nasal septum. M astoid air cells are clear. Skull and soft tissues are within normal limits. IMPRESSION: 1. Acute moderate sized infarction of the right frontal lobe with acute small infarction of the right occipital lobe. Embolic etiology should be considered. 2. No acute intracranial hemorrhage, midline shift or abnormal enhancement. The above report was generated using voice recognition software. It may contain grammatical, syntax o r spelling errors. Electronically signed by: Bry Muller M.D. 10/26/2018 7:12 AM
[2018-10-26] MEDS: FEXOFENADINE HCL 180 MG TAB PO SCH (07:51)
[2018-10-26] MEDS: TRIAMCINOLONE ACET NASAL SPRAY 10.8ML BTL SCH (07:51)
[2018-10-26] MEDS: ASPIRIN 81 MG ECTAB PO SCH (07:51)
[2018-10-26] MEDS ORDERED: LOSARTAN POTASSIUM 25 MG TAB PO SCH (09:00)
[2018-10-26] MEDS ORDERED: ATORVASTATIN 40 MG TAB PO SCH (09:00)
--- NOTE | 2018-10-26 10:32 | Hospitalist Progress Note ---
Date of Service October 26, 2018 Assessment & Plan (1) Cerebrovascular accident: Presented with dysarthria and without any other neuro symptoms MRI scan of the head showed acute moderate-sized infarction of the right frontal lobe with acute small infarction of the right occipital lobe. Embolic etiology suspected and likely embolization of cholesterol crystals Has been on aspirin and atorvastatin Echocardiogram is pending No neurological symptoms and dysarthria is resolved PT and OT has been requested Await neurological evaluation-appreciate recommendations We will add Plavix Get HITESH to rule out embolic source and vascular surgery consult for significant right carotid stenosis Present on Admission?: Yes (2) HTN (hypertension): Blood pressure remains on the upper side We will continue his usual blood pressure medications on discharge (3) Hyperlipidemia: Has been on atorvastatin 40 mg daily Increase atorvastatin to 80 mg a day (4) Carotid stenosis, right: Has extensive ulcerated atherosclerotic plaque within the proximal right internal carotid artery with 70% stenosis Will likely need to have vascular surgery evaluation as an outpatient Continue statin-dose is increased to 80 mg Vascular surgery consulted Present on Admission?: Yes Subjective 10/26 The patient was seen and examined in telemetry unit He is a 73-year-old male with significant past medical history of hypertension, hyperlipidemia, allergic rhinitis and atopic dermatitis was admitted yesterday with difficulty speaking without any other neuro symptoms He has been feeling a lot better this morning and denies any more symptoms of dysarthria Denies any other symptoms and wants to go home Persuaded to stay in the hospital for a few important w/u Review of Systems Review of Systems: All systems reviewed and are unremarkable except as noted below Neurologic: Dysarthria is resolved and does not have any other neurological symptoms Physical Exam Physical Exam: Lying in bed comfortably Constitutional: well developed and well nourished; no acute distress Eyes: PERRL, conjunctivae normal, anicteric sclerae ENMT: external ear and nose normal, oropharynx normal Neck: trachea midline, no thyromegaly Respiratory: normal respiratory effort; no respiratory distress Auscultation: lungs clear to auscultation bilaterally Cardiovascular: Rate/Rhythm: regular rate and regular rhythm Heart Sounds: no murmur Gastrointestinal (Abdomen): Inspection/Auscultation: abdomen normal to inspection and normal bowel sounds Percussion/Palpation: abdomen soft Musculoskeletal: No acute arthritis Neurologic: PERRL, EOMI, accommodation nl, no face palsy, no dysarthria Speech / Cognition: normal speech Psychiatric: A+Ox3, euthymic affect Lymphatic: no cervical or axillary lymphadenopathy Results & Data Vital Signs (Past 12 Hours) Vital Signs Temp Pulse Pulse Resp BP BP BP 10/26/18 07:44 36.8 C 90 20 173/97 H 160/100 H 10/26/18 04:05 36.4 C L 83 20 128/79 10/26/18 01:25 36.5 C 80 18 145/95 H 10/25/18 23:30 76 25 H 10/25/18 23:01 78 25 H 161/99 H 10/25/18 23:00 80 30 H 10/25/18 22:30 78 26 H Pulse Ox 10/26/18 07:44 90 10/26/18 04:05 96 10/26/18 01:25 95 10/25/18 23:30 96 10/25/18 23:01 97 10/25/18 23:00 96 10/25/18 22:30 95 Laboratory Results Short CBC 10/25/18 10/26/18 Range/Units 18:59 05:54 WBC 10.00 9.55 (4.8-10.8) K/uL Hgb 16.1 14.9 (14.0-18.0) g/dL Hct 45.9 43.7 (42-52) % Plt Count 217 180 (130-400) K/uL BMP 10/25/18 10/26/18 18:59 05:54 Sodium 141 141 Potassium 4.5 4.0 Chloride 108 H 110 H Carbon Dioxide 26 28 BUN 21 H 14 Creatinine 1.02 0.83 Glucose 87 88 Calcium 9.0 8.4 L Cardiac Enzymes 10/25/18 Range/Units 18:59 Troponin I < 0.015 (0-0.045) ng/ml Liver Function 10/25/18 Range/Units 18:59 Total Bilirubin 0.3 (0.2-1) mg/dl AST 20 (15-37) U/L ALT 30 (12-78) U/L Alkaline Phosphatase 74 (45-117) U/L Albumin 3.5 (3.4-5.0) gm/dl Urine 10/25/18 Range/Units Unknown Urine Color Yellow Urine Appearance Clear (Clear) Urine pH 5.5 (4.5-7.5) Ur Specific [place] 1.030 (1.000-1.030) Urine Protein Negative (Negative) Urine Glucose (UA) Negative (Negative) Diagnostic Findings MRI of the brain:1. Acute moderate sized infarction of the right frontal lobe with acute small infarction of the right occipital lobe. Embolic etiology should be considered. 2. No acute intracranial hemorrhage, midline shift or abnormal enhancement. Head CTA-no significant abnormality Neck CTA-Extensive ulcerated atherosclerotic plaque within the proximal right internal carotid artery with 70% stenosis. Medications Administered Current Inpatient Medications Acetaminophen (Tylenol) 650 mg PO Q4H PRN PRN Reason: Pain or Fever Stop: 11/25/18 00:49 Aspirin (Ecotrin Ectab) [facility] [place] Stop: 11/25/18 08:59 Last Admin: 10/26/18 07:51 Dose: 81 mg Documented by: Atorvastatin Calcium (Lipitor) 40 mg PO QAM [facility] Stop: 11/25/18 08:59 Last Admin: 10/26/18 07:51 Dose: 40 mg Documented by: Fexofenadine HCl (Lindsey) 180 mg PO DAILY [facility] Stop: 11/25/18 08:59 Last Admin: 10/26/18 07:51 Dose: 180 mg Documented by: Gadobutrol (Gadavist 65ml) 10.8 ml IV ONCE PRN PRN Reason: Interaction Checking Stop: 10/30/18 01:21 Last Admin: 10/26/18 00:57 Dose: 10.8 ml Documented by: Sodium Chloride (Nss 1000ml) 1,000 mls @ 75 mls/hr IV .[id number] [facility] Stop: 10/26/18 16:00 Last Admin: 10/26/18 02:05 Dose: 75 mls/hr Documented by: Losartan Potassium (Cozaar) 25 mg PO DAILY [facility] Stop: 11/25/18 08:59 Miscellaneous (Order Awaiting Action) 1 ea N/A QS [facility] Stop: 11/25/18 07:59 Last Admin: 10/26/18 07:29 Dose: Not Given Documented by: Miscellaneous Information (Pharmacist Discharge Med Rec Consult) 1 ea N/A UD PRN PRN Reason: Consult Stop: 11/25/18 00:49 Mometasone Furoate ([place] 0.1%) 1 appln EXT DAILY PRN PRN Reason: Itching Stop: 11/25/18 00:49 Nitroglycerin (Nitrostat) 0.4 mg SL UD PRN PRN Reason: Chest Pain Stop: 11/25/18 00:49 Ondansetron HCl (Zofran) 4 mg IV Q6H PRN PRN Reason: Nausea Stop: 11/25/18 00:49 Triamcinolone Acetonide (Nasacort) 2 sprays NA DAILY LINETTE Stop: 11/25/18 08:59 Last Admin: 10/26/18 07:51 Dose: 2 sprays Documented by: (1) Cerebrovascular accident CVA mechanism: unspecified Qualified Code(s): I63.9 - Cerebral infarction, unspecified
[2018-10-26] MEDS: CLOPIDOGREL BISULFATE 75 MG TAB PO SCH (17:23)
--- NOTE | 2018-10-27 01:14 | Anesthesiology Consultation ---
Date of Service October 27, 2018 Assessment & Plan (1) Encounter for pre-operative examination: Chart Review Chart Review: Acceptable Risk for Surgery and Patient NOT seen in Pre Admission Testing Consults Requested none History Height/Weight Height: 5 ft 7 in Weight: 106.8 kg Allergies Allergy/AdvReac Type Severity Reaction Status Date / Time No Known Allergies Allergy Unverified 10/25/18 20:52 Medications Home Medications Medication Instructions Recorded Confirmed Last Taken fexofenadine [Lindsey Allergy] 180 mg PO DAILY 10/25/18 10/25/18 Unknown losartan 25 mg PO DAILY 10/25/18 10/25/18 Unknown mometasone 1 applic TOPICAL DAILY PRN 10/25/18 10/25/18 Unknown simvastatin 40 mg PO PM 10/25/18 10/25/18 Unknown tacrolimus 1 applic TOPICAL BID 10/25/18 10/25/18 Unknown triamcinolone acetonide [Nasacort] 2 spray INTRANASAL DAILY 10/25/18 10/25/18 Unknown Active Medications Generic Name Dose Route Start Last Admin Trade Name Freq PRN Reason Stop Dose Admin Aspirin 81 mg 10/26/18 09:00 10/26/18 07:51 Ecotrin Ectab PO 11/25/18 08:59 81 mg QAM LINETTE Administration Clopidogrel Bisulfate 75 mg 10/26/18 16:30 10/26/18 17:23 Plavix PO 11/25/18 16:29 75 mg QAM LINETTE Administration Fexofenadine HCl 180 mg 10/26/18 09:00 10/26/18 07:51 Lindsey PO 11/25/18 08:59 180 mg DAILY LINETTE Administration Gadobutrol 10.8 ml 10/26/18 01:22 10/26/18 00:57 Gadavist 65ml IV 10/30/18 01:21 10.8 ml ONCE PRN Administration Interaction Checking Miscellaneous 1 ea 10/26/18 08:00 10/26/18 21:00 Order Awaiting Action N/A 11/25/18 07:59 Not Given QS LINETTE Triamcinolone Acetonide 2 sprays 10/26/18 09:00 10/26/18 07:51 Nasacort NA 11/25/18 08:59 2 sprays DAILY LINETTE Administration Past Medical History Medical History Embolic stroke Carotid stenosis, right Hyperlipidemia HTN (hypertension) Cerebrovascular accident (Acute) High cholesterol (Chronic) Social History Smoking Status: Former smoker Do You Dip or Chew Tobacco: No Hx Alcohol Use: Yes Alcohol type: beer alcohol intake frequency: 0-2 drinks per day Hx Substance Use: No Physical Exam Vital Signs Last Vital Signs Temp 37.1 C 10/26/18 23:45 Pulse 85 10/26/18 23:45 Resp 19 10/26/18 23:45 BP 137/84 10/26/18 23:45 Pulse Ox 94 10/26/18 23:45 Testing Laboratory Results 10/26/18 05:54 10/26/18 05:54 PT 10.3 Seconds (9.0-12.0) 10/25/18 18:59 INR 1.0 (0.9-1.1) 10/25/18 18:59 APTT 23.9 Seconds (21.0-31.0) 10/25/18 18:59 Hemoglobin A1c 6.2 % (4.5-5.6) H 10/26/18 05:54 Urine Color Yellow 10/25/18 Unknown Urine Appearance Clear (Clear) 10/25/18 Unknown Urine pH 5.5 (4.5-7.5) 10/25/18 Unknown Ur Specific [place] 1.030 (1.000-1.030) 10/25/18 Unknown Urine Protein Negative (Negative) 10/25/18 Unknown Urine Glucose (UA) Negative (Negative) 10/25/18 Unknown Urine Ketones Negative (Negative) 10/25/18 Unknown Urine Nitrite Negative (Negative) 10/25/18 Unknown Ur Leukocyte Esterase Negative (Negative) 10/25/18 Unknown Electrocardiogram Date: 10/25/18 Findings: + NSR @ (83) marked sinus arrhythmia, occasional PVCs Echocardiogram Date: 10/26/18 EF: 60-65% LV Function: normal Other Findings: + diastolic dysfunction (grade 1) Valvular Disease: + no significant valvular disease
[2018-10-27 05:57] LABS: Basophils # (auto) 0.02 K/uL (0-0.2); Basophils % (auto) 0.3 %; Eosinophils # (auto) 0.17 K/uL (0-0.5); Eosinophils % (auto) 2.2 %; Hematocrit (blood only) 43.7 % (42-52); Hemoglobin 15.1 g/dL (14.0-18.0); Immature Granulocytes # (auto) 0.02 K/uL (0.00-0.02); Immature Granulocytes % (auto) 0.3 %; Lymphocytes # (auto) 1.64 K/uL (1.2-3.4); Lymphocytes % (auto) 20.9 %; Mean Corpuscular Hgb Conc 34.6 g/dL (32-36); Mean Corpuscular Volume 90.5 fL (80-100); Mean Platelet Volume 10.1 fL (7.4-10.4); Monocytes # (auto) 0.83 K/uL (0.11-0.59); Monocytes % (auto) 10.6 %; Neutrophils # (auto) 5.16 K/uL (1.4-6.5); Neutrophils % (auto) 65.7 %; Platelet Count 176 K/uL (130-400); RDW Coefficient of Variation 12.7 % (11.5-14.5); RDW Standard Deviation 41.9 fL (36.4-46.3); Red Blood Count 4.83 M/uL (4.7-6.1); White Blood Count 7.84 K/uL (4.8-10.8)
[2018-10-27 06:25] LABS: BUN Creatinine Ratio 14.2 (10-20); Calcium 8.5 mg/dl (8.5-10.1); Est GFR (African American) 95.9; Est GFR (Non-African American) 82.7; Magnesium 2.1 mg/dl (1.8-2.4); Phosphorus 2.9 mg/dl (2.5-4.9); Potassium 3.9 mmol/L (3.5-5.1)
[2018-10-27] MEDS: ASPIRIN 81 MG ECTAB PO SCH (08:39)
[2018-10-27] MEDS: FEXOFENADINE HCL 180 MG TAB PO SCH (08:39)
[2018-10-27] MEDS: TRIAMCINOLONE ACET NASAL SPRAY 10.8ML BTL SCH (08:39)
[2018-10-27] MEDS: CLOPIDOGREL BISULFATE 75 MG TAB PO SCH (08:41)
[2018-10-27] MEDS ORDERED: ATORVASTATIN 40 MG TAB PO SCH (09:00)
[2018-10-27] MEDS ORDERED: MIDAZOLAM HCL 1 MG/ML 2ML VIAL ONE (10:27)
[2018-10-27] MEDS ORDERED: fentaNYL citrate 100 MCG/2 ML VIAL ONE (10:27)
[2018-10-27] MEDS ORDERED: BENZOCAIN/TETRACA/BUTAM SPRAY 200 APPLN/20 GM SPRY EXT ONE (10:28)
[2018-10-27] MEDS ORDERED: CANNULA ONE (10:28)
--- NOTE | 2018-10-27 10:31 | Consultation Report ---
DATE OF CONSULTATION: 10/27/2018 INPATIENT CARDIOLOGY CONSULTATION CONSULTATION REQUESTED BY: Dr. Ordoñez. REASON FOR CONSULTATION: Need for transesophageal echocardiogram. HISTORY OF PRESENT ILLNESS: Mr. Marcus is a very pleasant 73-year-old gentleman who presented to [facility] on 10/25/2018 with complaints of change in speech. He first noticed the symptoms a couple days prior to presentation, it lasted for about half an hour and then resolved. Another episode then occurred on the day of presentation. At that time, his daughter came over to visit him, noticed the symptoms as well and brought him to the Emergency Department. Upon arrival to the Emergency Department, the symptoms spontaneously resolved, but a CAT scan was performed that showed a right frontal lobe subacute infarct. A 2D echocardiogram was unremarkable with an intact interatrial septum and cardiology was consulted to perform a transesophageal echocardiogram at the request of neurology. Currently, the patient states he feels well at rest. He denies any history of COPD, obstructive sleep apnea, asthma, esophageal stricture or dysphagia. He has never had an upper endoscopy. PAST SURGICAL HISTORY: 1. Colonoscopy. 2. Cystoscopy. 3. Lithotripsy. MEDICAL ILLNESSES: 1. Dyslipidemia. 2. Hypertension with a history of intolerance to YOSI inhibitors. 3. Nonmelanoma skin cancer. FAMILY HISTORY: Noncontributory given his age. SOCIAL HISTORY: The patient has remote tobacco use history. Drinks occasional alcohol. Denies any recreational drug use. He lives at home by himself. He is a retired tank truck operator. REVIEW OF SYSTEMS: As per HPI. All other review of systems reviewed and negative at this time. ALLERGIES: YOSI INHIBITORS, CAUSE A COUGH. MEDICATIONS AN OUTPATIENT: 1. Losartan 25 mg daily. 2. Simvastatin 40 mg daily. 3. Lindsey. PHYSICAL EXAMINATION: VITAL SIGNS: Temperature 36.5, pulse 78, respiratory rate 12, blood pressure 150/95. GENERAL: Awake, alert, oriented x3 in no acute distress. HEENT: Normocephalic, atraumatic. Pupils equal, round, reactive to light and accommodation. Extraocular muscles intact. Anicteric sclerae. Moist mucous membranes. Partial upper dentures are present. NECK: No JVD, no bruit. CARDIOVASCULAR: Regular. Positive S4. Normal S1 and S2. No S3. No murmurs or rubs. PULMONARY: Clear to auscultation bilaterally. No rales, rhonchi, or wheezing. ABDOMEN: Bowel sounds x4, soft. No rebound, guarding, tenderness. No organomegaly. EXTREMITIES: No clubbing, cyanosis or edema. +2 pedal pulses bilaterally. SKIN: Warm and dry. TEST RESULTS: A 2D echocardiogram was read as normal LV chamber size, mild concentric LVH, normal LV systolic function, EF 60-65%, no segmental left ventricular wall motion abnormalities are noted. Grade 1 diastolic dysfunction, no significant valvular pathology. The interatrial septum is intact with no evidence of ASD. Injection of contrast documented no interatrial shunt. IMPRESSION: 1. Subacute cerebrovascular accident. 2. Hypertension. 3. Dyslipidemia. RECOMMENDATIONS: It was my pleasure to see Mr. Marcus in consultation today. The procedure along with the risks which include but are not limited to tooth loss, oropharyngeal trauma or esophageal puncture were discussed with the patient at great length. He states he understands, he is accepting of the risks and wishes to proceed with a transesophageal echocardiogram, so formal report to follow. In terms of his medical management, given the fact he has had a CVA, I agree with the simvastatin being increased to atorvastatin 80. No other cardiac changes will be made; however, his losartan can be up titrated as necessary, as needed for further blood pressure control.
--- NOTE | 2018-10-27 10:41 | History & Physical Bridge Note ---
Date of Service October 27, 2018 History & Physical Bridge Note I have examined the patient, reviewed the History & Physical and in the interval since the performance of the History & Physical I have noted the following changes of clinical significance: no changes noted
--- NOTE | 2018-10-27 10:42 | Pre Anesthesia Assessment ---
Date of Service October 27, 2018 Pre Sedation Assessment Vital Signs Temp Pulse Resp BP BP Pulse Ox 10/27/18 10:38 36.8 C 72 20 152/80 H 96 10/27/18 07:50 36.5 C 78 20 150/95 H 95 10/27/18 02:30 36.4 C L 75 18 134/93 95 10/26/18 23:45 37.1 C 85 19 137/84 94 10/26/18 19:51 36.7 C 69 18 154/75 H 93 10/26/18 16:04 36.5 C 79 18 142/79 H 95 Pre-Sedation Airway Assessment Smoking Status: Former smoker Hx Sleep Apnea: No Short, Thick Neck: No Thyromental Distance: > or= 3.5 Finger Breadths Oral Cavity: + Dentures Mallampati Class: II ASA: ASA3 NPO Status Date of Last Intake of Fluids: 10/26/18 Time of Last Intake of Fluids: 19:00 Date of Last Intake of Solid Food: 10/26/18 Time of Last Intake of Solid Foods: 19:00 Notes The planned sedation has been discussed with the patient. Informed Consent was obtained. I have identified the patient, determined the appropriateness of sedation and have assessed the patient immediately prior to the procedure. All medicine(s) and interventions are by my order.
--- NOTE | 2018-10-27 13:39 | Consultation ---
Date of Consultation October 27, 2018 Assessment & Plan (1) Carotid stenosis, right: At this point recommended a right carotid endarterectomy. Being that he has been astigmatic since his admission to the hospital we will plan on doing this on this coming Thursday. He may be discharged the meantime on Plavix. We will not stop the Plavix prior to his surgery. I have discussed the risks options and benefits of the procedure with the patient. The patient understands the risks options and benefits and agrees to the procedure. History of Present Illness Reason for Consultation: Right carotid stenosis. Attending Physician: Oren Simon MD History of Present Illness This is a 73-year-old white gentleman who prior to admission had 2 episodes of difficulty with speech. He denied any weakness or paresthesias in either side of his body. He recovered from both episodes of the difficulty with speech. During his work-up he was found to have a severe stenosis of his right internal carotid artery which was greater than 70%. His MRA showed evidence of embolic phenomenon to his right hemisphere. He denies any knowledge of cardiac problems. Denies any previous TIAs or CVAs. Allergies Allergy/AdvReac Type Severity Reaction Status Date / Time No Known Allergies Allergy Unverified 10/25/18 20:52 Home Medications Home Medications Medication Instructions Recorded Confirmed Type fexofenadine [Lindsey Allergy] 180 mg PO DAILY 10/25/18 10/25/18 History losartan 25 mg PO DAILY 10/25/18 10/25/18 History mometasone 1 applic TOPICAL DAILY PRN 10/25/18 10/25/18 History simvastatin 40 mg PO PM 10/25/18 10/25/18 History tacrolimus 1 applic TOPICAL BID 10/25/18 10/25/18 History triamcinolone acetonide [Nasacort] 2 spray INTRANASAL DAILY 10/25/18 10/25/18 History Patient History Medical History Embolic stroke Carotid stenosis, right Hyperlipidemia HTN (hypertension) Cerebrovascular accident (Acute) High cholesterol (Chronic) Social History Preferred Language: Danish Communication Ability: Effective Right Of Way Manager Required: No Beliefs That Will Affect Care: None Current Living Situation: Alone Other Information That Helps Us Care for You: No Feels Safe at Home: Yes Safety Concerns: Feels Safe At This Time Smoking Status: Former smoker Do You Dip or Chew Tobacco: No Second Hand Exposure: No Tobacco Cessation Education Requested by Patient: No Hx Alcohol Use: Yes Alcohol type: beer Hx Substance Use: No Review of Systems Review of Systems: All systems reviewed & are unremarkable except as noted in HPI & below Physical Exam Neck: trachea midline, no thyromegaly Respiratory: normal respiratory effort, lungs clear to auscultation Cardiovascular: RRR, no murmur, no edema Vessels: femoral pulses present, posterior tibial pulses present, dorsalis pedis pulses present and radial pulses present Extremities: normal capillary refill Gastrointestinal (Abdomen): normal bowel sounds, soft, nontender, no hepatosplenomegaly Musculoskeletal: no cyanosis or clubbing, extremities motor strength 5/5 Skin: no rashes, warm and dry Neurologic: normal touch/pain/proprioception and CN's II-XI intact bilaterally Motor/Sensory: normal movement Psychiatric: A+Ox3, euthymic affect Results & Data Vital Signs (Past 12 Hours) Vital Signs Temp Pulse Pulse Resp BP BP Pulse Ox 10/27/18 12:00 36.7 C 67 22 136/98 94 10/27/18 11:31 72 18 131/70 95 10/27/18 11:21 76 18 136/68 93 10/27/18 11:11 74 18 137/78 93 10/27/18 11:01 78 16 130/66 96 10/27/18 10:56 74 16 135/69 95 10/27/18 10:51 72 16 144/68 H 99 10/27/18 10:46 71 16 158/79 H 99 10/27/18 10:38 36.8 C 72 20 152/80 H 96 10/27/18 07:50 36.5 C 78 20 150/95 H 95 10/27/18 02:30 36.4 C L 75 18 134/93 95
--- NOTE | 2018-10-27 15:45 | Hospitalist Progress Note ---
Date of Service October 27, 2018 Assessment & Plan (1) Cerebrovascular accident: Presented with dysarthria and without any other neuro symptoms CT head on admission showed Hypodensity with loss of mccall-white differentiation within a small portion of the right frontal lobe which favors an acute to subacute infarct. MRI scan of the head showed acute moderate-sized infarction of the right frontal lobe with acute small infarction of the right occipital lobe. Embolic etiology suspected and likely embolization of cholesterol crystals CTA neck showed extensive ulcerated atherosclerotic plaque within the proximal right internal carotid artery with 70% stenosis. Echocardiogram done showed no wall motion abnormality with EF btw 60-65 % HITESH done today showed no interatrial septal shunt and no evidence for an atrial septal defect or embolic source PT/OT on board Case discussed with neurology recommended ASA 81 mg daily and Plavix 75 mg daily for 21-days, then Plavix 75 mg daily OK from neurology standpoint to discharge (2) Carotid stenosis, right: Has extensive ulcerated atherosclerotic plaque within the proximal right internal carotid artery with 70% stenosis Surgery on board and recommended right carotid endarterectomy to be done as an outpatient on Thursday As per Vascular surgery ok to discharge pt home since surgery scheduled for Thursday Due to patient insurance ([facility]), Dr. Segundo does not accept his insurance I called [place] and discussed the case with Vascular Dr. Arenas Appointment made for patient to see Dr. Arenas on 11/02 in [place]. Will as our radiology department to push the imaging so that [facility] neurology can review it. Continue Atorvastatin 80mg, plavix and aspirin (3) HTN (hypertension): Blood pressure remains on the upper side will allow permissive HTN Continue home dose losartan (4) Hyperlipidemia: Statin has been increased to 80mg daily DVT px on SCDs CODE STATUS FULL CODE Disposition Discharge home today Subjective Pt was seen and examined Lying in bed with no distress Pt said that he feels fine His speech is back to normal He denies any chest pain palpitation, dizziness, numbness, weakness and SOB Physical Exam Physical Exam: General- No acute distress Head- atraumatic Eyes- PERRL, EOMI, ENT- oropharynx clear Neck- supple, no JVD Lungs- clear to auscultation Heart- regular rhythm; no murmur Abdomen- normal bowel sounds, soft, nontender Extremities- no calf tenderness Neuro- alert, oriented x 3; PERRL, EOMI; no facial palsy; no dysarthria Skin- warm & dry Results & Data Vital Signs (Past 12 Hours) Vital Signs Temp Pulse Pulse Resp BP BP Pulse Ox 10/27/18 12:00 36.7 C 67 22 136/98 94 10/27/18 11:31 72 18 131/70 95 10/27/18 11:21 76 18 136/68 93 10/27/18 11:11 74 18 137/78 93 10/27/18 11:01 78 16 130/66 96 10/27/18 10:56 74 16 135/69 95 10/27/18 10:51 72 16 144/68 H 99 10/27/18 10:46 71 16 158/79 H 99 10/27/18 10:38 36.8 C 72 20 152/80 H 96 10/27/18 07:50 36.5 C 78 20 150/95 H 95 (1) Cerebrovascular accident CVA mechanism: unspecified Qualified Code(s): I63.9 - Cerebral infarction, unspecified
[2018-10-27] MEDS ORDERED: STROKE PATIENT DISCHARGE STA (17:09)
--- NOTE | 2018-10-27 17:13 | Neurology Progress Note ---
Date of Service October 27, 2018 Assessment & Plan (1) Embolic stroke: A 73 year old male with history of HTN and HLD admitted with intermittent speech deficits which have now resolved. MRI brain confirms embolic appearing ischemic strokes in right MCA and right [employer] territories. CTA head and neck shows significant right carotid stenosis. TTE showed no cardiac source of embolism. NIHSS 0. Patient currently back to baseline. He was not on ASA at home prior to admission. - Recommend ASA 81 mg daily and Plavix 75 mg daily for 21-days, then Plavix 75 mg daily - Recommend increasing lipitor to 80 mg daily - SBP goal < 140 <DBP goal < 90 - Ha1c 6.2 - HITESH Negative for cardiac thrombus - Vascular surgery recommends CEA. Appreciate input. Although potential issue with insurance. Agree with discussion with Maikol in [place]. Please contact me if I can assist. - Recommend PCP arrange for security monitor as outpatient (Zio patch) Outpatient follow up with Neurology in 8 weeks. Ok to discharge pending [facility] Neurosurgery recommendations regarding symptomatic carotid stenosis. Subjective Patient was seen and examined. Reports doing Well. Denies any complaints or concerns at this time. Hoping to go home. Physical Exam Physical Exam: XAM: Constitutional: appearance normally developed, obese mle Head and Face: normocephalic and atraumatic Eyes: normal lids, erythemtous around eyes with lacrimation Neck: supple Respiratory: normal effort Cardiovascular: normal pulses Abdomen: non distended Skin: no rashes, lesions, or ulcers noted Psychiatric: normal judgement and insight, normal mood and normal affect NEUROLOGIC EXAMINATION: Appearance: no acute distress Orientation: awake, alert and oriented x 3 Mental Status: alert Memory: Ok Attention: normal Knowledge: appropriate Language: no aphasia Speech: no dysarthria Cranial Nerves: CN 2 - no visual defect on confrontation and pupils round, equal, reactive to light CN 3, 4, 6 - extra-ocular movements intact and no nystagmus CN 5 - facial sensation intact CN 7 - no facial asymmetry CN 8 - intact hearing CN 9, 10 - palate symmetric CN 11 - good shoulder shrug CN 12 - tongue midline Gait: deferred Coordination: no ataxia with finger to nose testing Sensory: intact and symmetric to light touch Muscle Tone: normal Muscle exam: 5/5 throughout Reflexes: 2+ at the knees, no clonus Results & Data Vital Signs (Past 12 Hours) Vital Signs Temp Pulse Pulse Resp BP BP Pulse Ox 10/27/18 15:55 36.6 C 93 H 18 155/91 H 94 10/27/18 12:00 36.7 C 67 22 136/98 94 10/27/18 11:31 72 18 131/70 95 10/27/18 11:21 76 18 136/68 93 10/27/18 11:11 74 18 137/78 93 10/27/18 11:01 78 16 130/66 96 10/27/18 10:56 74 16 135/69 95 10/27/18 10:51 72 16 144/68 H 99 10/27/18 10:46 71 16 158/79 H 99 10/27/18 10:38 36.8 C 72 20 152/80 H 96 10/27/18 07:50 36.5 C 78 20 150/95 H 95 Diagnostic Findings HITESH : No mass or cardiac thrombus visualized.
--- NOTE | 2018-10-27 19:56 | Pharmacy Report ---
Pharmacist Stroke Counseling - Date of Service October 27, 2018 - Scope: Pharmacy has been consulted to provide medication discharge counseling for this patient admitted with [ischemic stroke] [transient ischemic attack] as per the Pharmacist Discharge Counseling for Stroke Patients Protocol. - Medications on Discharge: Home Medications Medication Instructions Recorded Confirmed fexofenadine [Lindsey Allergy] 180 mg PO DAILY 10/25/18 10/25/18 losartan 25 mg PO DAILY 10/25/18 10/25/18 mometasone 1 applic TOPICAL DAILY PRN 10/25/18 10/25/18 tacrolimus 1 applic TOPICAL BID 10/25/18 10/25/18 triamcinolone acetonide [Nasacort] 2 spray INTRANASAL DAILY 10/25/18 10/25/18 New Rx's Medication Instructions Recorded aspirin [Ecotrin Low Strength] 81 mg PO QAM 30 Days #30 tab 10/27/18 atorvastatin 80 mg PO QAM 30 Days #60 tab 10/27/18 clopidogrel 75 mg PO QAM 30 Days #30 tab 10/27/18 - Action: The above medications, specifically ones for stroke treatment/prophylaxis, have been reviewed in detail with the patient and/or patient public relations representative(s) prior to discharge. This includes indication, common adverse reactions, drug interactions, and medication administration. Medication counseling has been employed using the teach-back method to ensure understanding. - Outcome: The patient and patient's daughter (Abigail) have demonstrated understanding of the medications. Please note, they are aware that the pharmacist will call them within 72 hours post-discharge to confirm that the appropriate medications are being taken and answer any further medication related questions the patient might have at that time. Contact information Individual to be contacted: Lawrence (patient) Phone number: [phone] Best time to call: AM is good Additional comments: clopidogrel 75mg daily + ASA 81mg daily (for 21 days only), D/C home simvastatin 40mg daily, ADD atorvastatin 80mg daily (received in hospital) Thank you for allowing pharmacy to be involved in the care of this patient. Please call [phone] or [phone] with any additional questions
--- NOTE | 2018-10-28 08:05 | Discharge Summary ---
Date of Service October 27, 2018 Admission HPI Per Admitting Provider CHIEF COMPLAINT: transient aphasia. 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 The patient says first symptoms started a couple of days ago when he had slurred speech for about half hour but then got resolved. It happened again yesterday and today at noon time. It lasted long. He could not speak and had slurred speech. He lives alone. Daughter lives close by. When she came in at around 4:30pm, he still had slurred speech. By the time they came to ER the symptoms resolved. Currently, his speech is back to normal but CAT scan is showing right frontal lobe acute subacute infarct. The patient denies any headache. Vision is not that great. He has atrophic dermatitis of the eyelids, uses cream. Hard of hearing. Has some runny nose, no sore throat, no difficulty swallowing. No chest pain, no shortness of breath. Sleeps okay. No cough, no fever, no chills, no nausea, no abdominal pain. Normal bowel and bladder movements. No blood in the stools, no black stools, no hematuria, no burning micturition. No swelling of the legs, no weakness in the hands or legs. Currently, resting comfortable and hemodynamically stable. Admission Exam Per Admitting Provider GENERAL: The patient is obese, not in acute distress. VITAL SIGNS: Temperature 36.4, pulse 90, respiratory rate 20, blood pressure 185/125 but currently in the 160s, oxygen 95% on room air. HEENT: No pallor, no icterus. Pupils equal, round, and reactive to light. NECK: No JVD, no neck masses, no carotid bruit. CARDIOVASCULAR: S1, S2 heard, regular rate and rhythm, no murmur, no gallop. RESPIRATORY SYSTEM: Normal AP diameter. No use of accessory muscle use. No wheezing, no crackles. ABDOMEN: Soft, bowel sounds present. Nontender. No distention. CENTRAL NERVOUS SYSTEM: Alert and oriented x3. Recent and remote memory intact. Power 5/5 in all extremities. No pronator drift. Coordination of movements normal. Uaodke-xi-gwxd test normal. Transition is intact. EXTREMITIES: No edema, no erythema. Principal Diagnosis Cerebrovascular accident Carotid stenosis, right HTN Dyslipidemia Discharge Exam General- No acute distress Head- atraumatic Eyes- PERRL, EOMI, ENT- oropharynx clear Neck- supple, no JVD Lungs- clear to auscultation Heart- regular rhythm; no murmur Abdomen- normal bowel sounds, soft, nontender Extremities- no calf tenderness Neuro- alert, oriented x 3; PERRL, EOMI; no facial palsy; no dysarthria Skin- warm & dry Discharge Data Allergies Allergy/AdvReac Type Severity Reaction Status Date / Time No Known Allergies Allergy Unverified 10/25/18 20:52 Consultations 10/25/18 21:36 ED Decision to Admit Stat 10/26/18 00:50 Consult Case Management - Discharge Planning Routine Consult Case Management - Discharge Planning Routine 10/26/18 08:00 Consult Neurology Routine 10/26/18 16:23 Consult Anesthesiology Routine 10/26/18 16:26 Consult Vascular Surgery Routine 10/27/18 08:44 Consult Cardiology Routine Procedures Performed Operation Date: 10/27/18 10:30 Actual Procedures p Transesophageal Echo(Not Applicable) - Júnior Ingram DO Operation Date: 11/01/18 09:20 <No data on this case meets the specified criteria> Ordered Studies 10/25/18 18:07 CT head/brain wo con Stat 10/25/18 18:08 CT angio head w con Stat CT angio neck with con Stat 10/26/18 00:13 MR brain wo/w con Urgent T OF THE HEAD WITHOUT CONTRAST CLINICAL HISTORY: Aphasia. COMPARISON STUDY: No previous studies for comparison. TECHNIQUE: Helical axial images of the head were obtained without IV contrast. Automated exposure control was utilized for the study. A dose lowering technique was utilized adhering to the principles of ALARA. FINDINGS: No acute intracranial hemorrhage, midline shift or mass effect is present. Ventricular system is normal. Basilar cisterns are patent. There are no extra-axial collections. There is mild hypodensity with loss of mccall-white di fferentiation within a small portion of the right frontal lobe. A few periventricular white matter hypodensities within the right frontal lobe probably reflect old infarcts. IMPRESSION: 1. No acute intracranial hemorrhage or mass effect. 2. Hypodensity with loss of mccall-white differentiation within a small portion of the right frontal lobe which favors an acute to subacute infarct. No mass ef fect. Electronically signed by: Jamarcus Calvo M.D. 10/25/2018 9:16 PM Dictated: 10/25/182111 Transcribed: 10/25/182111 XR chest 1V portable CLINICAL HISTORY: weakness COMPARISON STUDY: No previous studies for comparison. FINDINGS: Lung volumes are diminished. There is moderate enlargement of the cardiac silhouette with pulmonary vascular congestion. There is no consolidation to suggest pneumonia. There is no evidence for overt pulmonary edema. IMPRESSION: 1. Low lung volumes. 2. Moderate enlargement of the cardiac silhouette with pulmonary vascular congestion. Electronically signed by: Jamarcus Calvo M.D. 10/25/2018 6:47 PM Dictated: 10/25/181845 Transcribed: 10/25/181845 CTA ANGIOGRAPHY OF THE HEAD CLINICAL HISTORY: aphasia COMPARISON STUDY: No previous studies for comparison. TECHNIQUE: Helical axial images of the head were obtained following uneventful intravenous administration of 115 cc of Optiray 320. Automated exposure control was utilized for the study. A dose lowering technique was utilized adhering to the principles of ALARA. FINDINGS: Please note that the CT of the head will be reported separately. The bilateral M1, M2, A1 and A2 segments are patent. There is moderate plaque within the bilateral cavernous carotids without significant stenosis. No abrupt vessel cut off is identified. There is no intracranial aneurysm or dissection. Posterior circulation appears intact. IMPRESSION: No intracranial aneurysm or abrupt vessel cut off. Electronically signed by: Jamarcus Calvo M.D. 10/25/2018 9:29 PM Dictated: 10/25/182126 Transcribed: 10/25/182126 CT ANGIOGRAPHY OF THE NECK WITH CONTRAST CLINICAL HISTORY: aphasia COMPARISON STUDY: No previous studies for comparison. Technique: CT angiography of the carotid and vertebral arteries was obtained using Optiray 320 IV and 3D reconstruction on an independent workstation. NASCET criteria was utilized. Automated exposure control was utilized for the study. A dose lowering technique was utilized adhering to the principles of ALARA. CT DOSE: 1222.30 mGy.cm Findings: There is extensive ulcerated atherosclerotic plaque within the proximal right internal carotid artery. The vessel measures 1.4 mm in caliber at the level of stenosis. The vessel measures 4.6 mm distally. There is moderate plaque within the proximal left internal carotid artery without significant stenosis. The right vertebral artery is dominant and patent. There is no dissection within the major vessels of the neck. Lung apices are clear. There is no cervical lymphadenopathy. IMPRESSION: Extensive ulcerated atherosclerotic plaque within the proximal right internal carotid artery with 70% stenosis. Electronically signed by: Jamarcus Calvo M.D. 10/25/2018 9:24 PM Dictated: 10/25/182117 Transcribed: 10/25/182117 MR brain wo/w con HISTORY: 73 years-old Male cva acute strokelike symptoms COMPARISON: CT head, CTA head and neck 10/25/2018 TECHNIQUE: Multiplanar multisequence MRI of the brain was obtained both with and without the use of 10.8 mL Gadavist FINDINGS: Motion degraded exam. 1.8 x 1.0 cm area of restricted diffusion about the right occipital lobe distribution, image 11 series 4 with 2.9 x 1.9 cm area of restricted diffusion about the right frontal lobe, image 18 series 4, both of these areas demonstrating mildly increased T2/FLAIR signal. Midline structures including the corpus callosum, brainstem, optic chiasm, pituitary and pineal glands appear unremarkable on the sagittal T1 series. No cerebellar tonsillar herniation. Degenerative changes noted about the imaged cervical spine. There is no acute intracranial hemorrhage, midline shift, abnormal extra-axial collections, hydrocephalus or intracranial mass. 1.2 x 0.7 cm lipoma about the falx cerebri near the apex. No abnormal intra-axial or extra-axial enhancement. Mild age-related involutional changes. Minimal patchy white matter hypodensities are suggestive of chronic microvascular ischemic disease. Major flow voids at the level of the skull base appear patent. Prior bilateral cataract repair. Mild mucosal thickening of the paranasal sinuses. Mild leftward bowing and spurring of the nasal septum. Mastoid air cells are clear. Skull and soft tissues are within normal limits. IMPRESSION: 1. Acute moderate sized infarction of the right frontal lobe with acute small infarction of the right occipital lobe. Embolic etiology should be considered. 2. No acute intracranial hemorrhage, midline shift or abnormal enhancement. The above report was generated using voice recognition software. It may contain grammatical, syntax or spelling errors. Electronically signed by: Bry Muller M.D. 10/26/2018 7:12 AM Dictated: 10/26/18703 Transcribed: 10/26/18703 Hospital Course (1) Cerebrovascular accident: Presented with dysarthria and without any other neuro symptoms CT head on admission showed Hypodensity with loss of mccall-white differentiation within a small portion of the right frontal lobe which favors an acute to subacute infarct. MRI scan of the head showed acute moderate-sized infarction of the right frontal lobe with acute small infarction of the right occipital lobe. Embolic etiology suspected and likely embolization of cholesterol crystals CTA neck showed extensive ulcerated atherosclerotic plaque within the proximal right internal carotid artery with 70% stenosis. Echocardiogram done showed no wall motion abnormality with EF btw 60-65 % HITESH done today showed no interatrial septal shunt and no evidence for an atrial septal defect or embolic source PT/OT on board Case discussed with neurology recommended ASA 81 mg daily and Plavix 75 mg daily for 21-days, then Plavix 75 mg daily OK from neurology standpoint to discharge (2) Carotid stenosis, right: Has extensive ulcerated atherosclerotic plaque within the proximal right internal carotid artery with 70% stenosis Surgery on board and recommended right carotid endarterectomy to be done as an outpatient on Thursday As per Vascular surgery ok to discharge pt home since surgery scheduled for Thursday Due to patient insurance ([facility]), Dr. Segundo does not accept his insurance I called [place] and discussed the case with Vascular Dr. Arenas Appointment made for patient to see Dr. Arenas on 11/02 in [place]. Will as our radiology department to push the imaging so that [facility] neurology can review it. Continue Atorvastatin 80mg, plavix and aspirin (3) HTN (hypertension): Blood pressure remains on the upper side will allow permissive HTN Continue home dose losartan (4) Hyperlipidemia: Statin has been increased to 80mg daily DVT px on SCDs CODE STATUS FULL CODE Disposition Discharge home today Total Time Total Time Spent Total Time Spent (In Minutes): 35 minutes Total Time Includes: Examination of the Patient, Discharge Planning, Medication Reconciliation, Communication With Other Providers and Other Discharge Plan Discharge Items Patient Disposition: Home - Self-Care Reason For Visit: STROKE-LIKE SYMPTOMS Discharge Diagnosis: Cerebrovascular accident Carotid stenosis, right HTN Dyslipidemia Discharge Goals: Decrease discomfort, Improve disease control, Improve function and Increase independence Activity: Resume your previous activity Activity Comment: As tolerated Non-emergency contact: Primary Care Provider Call non-emergency contact if: you have any medication questions Follow-up/Referrals: Ney Epperson DO [Primary Care Provider] - Diet: Heart Healthy Add Provider Instructions: Follow up with your primary care provider Dr. Epperson on 11/01 @ 10:55 AM Follow up with Vascular surgery in [place] on 11/02 @ 9:[address] Skinner Follow up with Neurology in 4 to 6 weeks (office will call you with the appointment) Monitor your blood pressure (bring your blood pressure log at the next appointment with physician) Your physician will titrate your blood pressure if needed Continue aspirin 81 mg daily and Plavix 75 mg daily for 21-days, then after 21 days continue Plavix 75 mg daily only Please monitor for abnormal bleeding such as blood in your urine and stool Prescriptions: New clopidogrel 75 mg Tablet 75 mg PO QAM 30 Days Qty: 30 RF: 0 aspirin [Ecotrin Low Strength] 81 mg Tablet,Delayed Release (Dr/Ec) 81 mg PO QAM 30 Days Qty: 30 RF: 0 atorvastatin 40 mg Tablet 80 mg PO QAM 30 Days Qty: 60 RF: 0 Continued losartan 25 mg tablet 25 mg PO DAILY RF: 0 fexofenadine [Lindsey Allergy] 180 mg Tablet 180 mg PO DAILY RF: 0 tacrolimus 0.1 % ointment 1 applic topical BID RF: 0 triamcinolone acetonide [Nasacort] 55 mcg Aerosol,[place] 2 spray INTRANASAL DAILY RF: 0 mometasone 0.1 % cream 1 applic topical DAILY PRN (Reason: Itching) RF: 0 Discontinued simvastatin 40 mg Tablet 40 mg PO PM RF: 0 Stand-Alone Forms: Medications to Prevent Stroke, [facility]/Other Patient Handouts: Prediabetes, Diabetes Meal Planning Discharge Orders: Discharge Order (Routine); Ordered 10/27/18 Ordered By: Oren Simon Admission Data Admit Date/Time: 10/25/18 23:05 Attending Provider: Oren Simon Admit Provider: Sukumar Beckford Primary Care Provider: Ney Epperson Other Providers: Sukumar Beckford ; Sarita Clifford ; Eric Servin ; Sarita Serna ; Andrew Arndt ; Corinne Valencia ; Elizabeth Leslie ; Mckayla Prescott ; Shell Hernandez ; Laurie Tay ; Tahira Lamb ; Chevy Lima ; [place] ; Alexis Dela Cruz ; Asaf Roberts ; Shelley Roberts ; Dick Luna ; Virginie Card ; Vinay Cifuentes ; Jeffery Viveros ; Manuelito Browne ; Mamadou Zuñiga ; Duncan Santizo ; Chelle Mendoza ; Gildardo Johnson ; Charisma Whittaker ; Eri Johnson ; Andrew Rosen ; Talia Mathew ; Mikael Carranza ; Marisa Abraham ; Akilah Bravo ; Júnior Schwarz ; Radha Crowell ; Jovana Loyola ; Lori Woods ; Pat Pappas ; Tim Pappas V ; Kevon Jane ; Mckayla Oleary ; Kaden Lujan ; Yessica Velazquez V ; Reinaldo Kramer ; Angelika Mcgarry ; Jaz Pope ; Remedios Oleary. ; Tim Fuchs ; Rohit Mendoza ; Sindy Gupta. ; Lori Almanza ; Alexis Adams ; Khushboo Guerrero. ; Eric Santizo ; Triny Smart. ; Gary Walsh ; Donovan Segundo ; Sanjiv Ordoñez ; Júnior Ingram Service: Telemetry Other Interventions: Discharge Summary Assessment (RN) Last Done: 10/27/18 17:27 Discharge Summary Assessment (RN) Last Done: 10/27/18 20:16 DC Date/Time DO NOT enter until pt leaves facility: 10/27/18 17:47
--- NOTE | 2018-10-31 12:02 | Pharmacy Report ---
Pharmacist Post D/C Phone Note - Phone Note: Date of phone call: October 31, 2018. Individual with whom pharmacist spoke to: ERICH MARQUEZ The following questions were reviewed during the phone call with responses listed below each: Can you tell me the medications that you are currently taking as well as when and how you take each medication? -See Table Below When have you missed any doses of your medications? - No What side effects are you having from your medications, specifically, the new medications you were started on? - None What questions do you have about your medications? - None What problems are you having obtaining your medications? - None (medications were picked up after discharge) When is your next appointment with your primary care doctor? - tomorrow morning (11/01) with Dr. Epperson - vascular surgery in [place] (11/02) Additional comments: - Patient demonstrated good understanding of new medications. I did confirm that he stopped taking the simvastatin and started taking the atorvastatin 80 mg daily. Patient also had date marked on calendar for when aspirin should be stopped (11/17/18 - 21 days). As per the Pharmacist Discharge Counseling for Stroke Patients Protocol, this phone call has been completed within 72 hours of discharge. Thank you for allowing us to be involved in the care of this patient. - Home Medications: Home Medications Medication Instructions Recorded Confirmed fexofenadine [Lindsey Allergy] 180 mg PO DAILY 10/25/18 10/25/18 losartan 25 mg PO DAILY 10/25/18 10/25/18 mometasone 1 applic TOPICAL DAILY PRN 10/25/18 10/25/18 tacrolimus 1 applic TOPICAL BID 10/25/18 10/25/18 triamcinolone acetonide [Nasacort] 2 spray INTRANASAL DAILY 10/25/18 10/25/18 New Rx's Medication Instructions Recorded aspirin [Ecotrin Low Strength] 81 mg PO QAM 30 Days #30 tab 10/27/18 atorvastatin 80 mg PO QAM 30 Days #60 tab 10/27/18 clopidogrel 75 mg PO QAM 30 Days #30 tab 10/27/18
== END 2018-10-27 17:47 | disposition home or self-care (01) | DRG 66 ==
LOC: ED 17:30 → SUATTDRO 23:05 → 2E 23:05
PROC: CLS.TEE (2018-10-27 10:30)